=== PATIENT | female | born 1970 | race Caucasian/White ===

== ENCOUNTER 2022-11-19 07:58 | Outpatient (OUT) | payer OTHER, SELFPAY ==
--- NOTE | 2022-11-19 08:01 | VEIN_ITS ---
Patient: MARGOT PANDYA Exam Date: 11/19/2022 : 1970 Gender:F Ordering : DR CHASIDY VALLEJO M.D. Admission #: [id number] Family : Order #: [id number] CLICK HERE TO VIEW EXAM RADIOLOGY REPORT PROCEDURE: FACILITY [facility] - OFFICE VISIT INITIAL COMPARISON: None. PROGRESS NOTES: [age] year old female who presents with a 5 year history of dilated bulging veins, leg pain, swelling, muscle cramping, edema. The patient describes pain as 10/10 at times. The patient's right leg symptoms are worse than the left. There has been a progression of symptoms. This increases with prolonged leg dependency. The patient describes an improvement with rest, elevation, exercise, and compression stockings. The patient denies any signs and symptoms to suggest arterial ischemia. The patient describes a family history varicose veins on paternal side. The patient has drinking and smoking history of occasional alcohol consumption; no tobacco use. Patient has a past medical history significant for chronic back pain. The patient denies a history of deep venous thrombus or pulmonary embolus. See separate history and physical for medication list. No prior treatment for varicose or spider veins. Current use of compression stockings. After review of nurse notes, history and physical exam I discussed at length the pathophysiology of venous hypertension and possible treatments, therapies and strategies available. We discussed at length the importance of elevating the lower extremities above the level of the heart, increased physical activity and compression stocking use. Ultrasound venous reflux study performed today was discussed at length with the patient. The report demonstrates abnormally dilated and incompetent bilateral great saphenous veins and right small saphenous vein along with dilated and incompetent branch saphenous varicosities. PHYSICAL EXAM: The right leg demonstrates multiple varicosities, multiple spider veins, no ulceration, moderate edema, no skin discoloration. The left leg demonstrates a few varicosities, multiple spider veins, no ulceration, moderate edema, no skin discoloration. Both thighs, legs and feet were symmetrically warm to the touch. Good posterior tibial and dorsalis pedis pulses were present bilaterally. VEIN/VC Facility NEW Comprehensive IMPRESSION: 1. Bilateral lower extremity venous insufficiency 2. Bilateral lower extremity varicose veins 3. Moderate bilateral lower extremity subcutaneous edema 4. No flow significant arterial disease 5. CEAP: C3, EC, , [place] PLAN: 1. Continued use of compression stockings 2. Elevated legs and increased physical activity symptomatic relief 3. Endovenous laser ablation of right great saphenous, left great saphenous, and right small saphenous veins. 4. Microfoam chemical ablation of bilateral incompetent branch saphenous varicosities. 5. Bilateral lower extremity sclerotherapy. Nurse notes, history and physical were reviewed and confirmed, see attached forms. The nurse was present throughout the physical exam and consultation Dictated by: Pepito Joyner M.D. on 11/19/2022 at 09:25 Approved by: Pepito Joyner M.D. on 11/19/2022 at 09:34
--- NOTE | 2022-11-19 08:01 | VEIN_ITS ---
Patient: MARGOT PANDYA Exam Date: 11/19/2022 : 1970 Gender:F Ordering : DR CHASIDY VALLEJO M.D. Admission #: [id number] Family : Order #: [id number] CLICK HERE TO VIEW EXAM RADIOLOGY REPORT PROCEDURE: VC EXT VENOUS REFLUX RHIANNON LMTD COMPARISON: None. INDICATIONS: I83.813 Pain due to varicose veins of bilateral legs TECHNIQUE: Duplex imaging of the lower extremity to assess the deep and superficial venous system for the presence of deep or superficial venous incompetence and to document the location and severity of disease. The study includes evaluation of the great saphenous vein (GSV), anterior accessory saphenous vein (AASV) and small saphenous vein (SSV). Patient scanned in reverse Trendelenburg and standing. FINDINGS: RIGHT LOWER EXTREMITY: Saphenofemoral Junction Reflux: Yes 8.3mm 2.0 sec GSV: Diam (mm) Reflux/ Time (sec) Proximal Thigh 6.0 Yes 3.5 Mid Thigh 3.4 No Distal Thigh 5.9 Yes 1.0 Prox Calf 3.0 No Mid Calf 2.8 No Saphenopopliteal Junction Reflux: 5.8mm Yes 2.0 SSV: Proximal Calf 5.6 Yes 1.3 Mid Calf 4.8 Yes 1.4 AASV: Proximal Thigh 2.7 No Mid Thigh Distal Thigh Thrombi: No acute or chronic thrombus visualized Compressibility: Normal Flow: Normal Preforator: Dist/med calf 2.1mm with 0s reflux. Tech Note: Incompetent SFJ, GSV, SPJ, and SSV. Patent varicose vein dist/med calf 3.7mm with 0.9s reflux. Patent varicose vein prox/med calf 3.9mm with 1.2s reflux. Patent varicose vein mid/med thigh 5.6mm with 1.3s reflux. LEFT LOWER EXTREMITY: Saphenofemoral Junction Reflux: Yes 7.3 mm 3.0 sec GSV: Diam (mm) Reflux/Time (sec) Proximal Thigh 6.4 Yes 2.0 Mid Thigh 5.9 Yes 1.5 Distal Thigh 6.0 Yes 1.5 Prox Calf 2.6 No Mid Calf 2.7 No Saphenopopliteal Junction Relux: 4.8 mm No SSV: Proximal Calf 2.2 No Mid Calf 2.9 No AASV: Not present Proximal Thigh Mid Thigh Distal Thigh Thrombi: No acute or chronic thrombus visualized Compressibility: Normal Flow: Normal Commercial Sales Manager: Dist/med calf 2.7mm with 0s reflux. Tech Note: Incompetent SFJ and GSV. Patent varicose vein mid/med thigh 3.2mm with 1.0s reflux. Prox/med calf 4.7mm with 1.1s reflux. CONCLUSION: 1. Abnormally dilated and incompetent right great saphenous veins left great saphenous vein, and right small saphenous vein. 2. Dilated and incompetent branch saphenous varicosities bilaterally, right greater than left. Dictated by: Pepito Joyner M.D. on 11/19/2022 at 09:01 Approved by: Pepito Joyner M.D. on 11/19/2022 at 09:25
== END 2022-11-19 07:59 | disposition home or self-care (01) ==
PROVIDERS: PCP Radiology Diagnostic Radiology; Visit Provider Radiology Diagnostic Radiology
DX: I83.813 Varicose veins of bilateral lower extremities with pain (principal)
CPT/HCPCS: 93970; G0463